=== PATIENT | male | born 1965 | race Caucasian/White ===

== ENCOUNTER 2023-07-13 05:57 | Outpatient (CLI) | payer MEDICAID, SELFPAY ==
[2023-07-13 07:54] LABS: Absolute Lymphocyte Count 3.11 10^3/uL (1.2-3.4); Basophils % 0.1; Eosinophils % 0.1; HCT 33.5 % (40.0-50.0); HGB 10.9 g/dL (13.5-17.5); Lymphocytes % 10.2; MCH 26.5 pg (27.0-33.0); MCHC 32.5 % (32.0-36.0); MCV 81 fL (80-95); MPV 8.4 fL (8.0-11.0); Monocytes % 6.6; RBC 4.12 10^6/uL (4.36-5.78); RDW 19.7 % (11.8-14.1); RDW-SD 54.4 fL
[2023-07-13 08:11] LABS: Absolute Basophil Count 0.03 10^3/uL (0.0-0.2); Absolute Eosinophil Count 0.03 10^3/uL (0.0-0.7); Absolute Monocyte Count 2.01 10^3/uL (0.1-0.8); Absolute Neutrophil Count 24.71 10^3/uL (1.2-6.7)
[2023-07-13 08:15] LABS: Diff Comment Diff Reviewed; Platelet Count 859 10^3/uL (130-400); RBC Morphology Normal
[2023-07-13 08:26] LABS: ALT 63 U/L (16-63); AST 25 U/L (15-37); Albumin 2.1 g/dL (3.4-5.0); Alkaline Phosphatase 409 U/L (46-116); Anion Gap 11.5 mmol/L (3-11); BUN 14 mg/dL (7-18); Bilirubin, Total 0.3 mg/dL (0.2-1.0); CO2 26.5 mmol/L (21.0-32.0); CREATININE 0.7 mg/dL (0.70-1.30); Calcium 7.9 mg/dL (8.5-10.1); Chloride 98 mmol/L (98-107); FREE T4 0.95 ng/dL (0.76-1.46); Glucose 220 mg/dL (74-106); Magnesium 1.7 mg/dL (1.8-2.4); Potassium 3.7 mmol/L (3.5-5.1); Sodium 136 mmol/L (136-145); TSH 1.78 uIU/Ml (0.36-3.74); Total Protein 6.9 g/dL (6.4-8.2)
== END 2023-07-13 05:58 | disposition home or self-care (01) ==
LOC: LBO 05:57
PROVIDERS: Visit Provider Internal Medicine Medical Oncology
DX: C34.92 Malignant neoplasm of unspecified part of left bronchus or lung (principal); C79.51 Secondary malignant neoplasm of bone
CPT/HCPCS: 36415; 80053; 83735; 84439; 84443; 85025

== ENCOUNTER 2023-08-03 05:01 | Outpatient (CLI) | payer MEDICAID, SELFPAY ==
[2023-08-03 08:55] LABS: Absolute Basophil Count 0.07 10^3/uL (0.0-0.2); Absolute Monocyte Count 1.57 10^3/uL (0.1-0.8); Basophils % 0.5; HCT 29.8 % (40.0-50.0); HGB 9.2 g/dL (13.5-17.5); Immature Grans % 2.2; MCH 26.2 pg (27.0-33.0); MCHC 30.9 % (32.0-36.0); MCV 85 fL (80-95); MPV 8.4 fL (8.0-11.0); Monocytes % 11.5; Neutrophils % 73.8; RBC 3.51 10^6/uL (4.36-5.78); RDW 19.4 % (11.8-14.1); RDW-SD 58.9 fL; WBC 13.65 10^3/uL (4.4-10.8)
[2023-08-03 09:02] LABS: Absolute Eosinophil Count 0.14 10^3/uL (0.0-0.7); Absolute Neutrophil Count 10.07 10^3/uL (1.2-6.7)
[2023-08-03 09:25] LABS: ALT 14 U/L (16-63); AST 10 U/L (15-37); Albumin 2.1 g/dL (3.4-5.0); Alkaline Phosphatase 364 U/L (46-116); Anion Gap 9.9 mmol/L (3-11); BUN 5 mg/dL (7-18); Bilirubin, Total 0.3 mg/dL (0.2-1.0); CO2 28.1 mmol/L (21.0-32.0); CREATININE 0.8 mg/dL (0.70-1.30); Calcium 8.1 mg/dL (8.5-10.1); Chloride 100 mmol/L (98-107); Estimated GFR 102.58 (mL/min/1.73m2); FREE T4 1.18 ng/dL (0.76-1.46); Glucose 163 mg/dL (74-106); Potassium 3.4 mmol/L (3.5-5.1); Sodium 138 mmol/L (136-145); TSH 0.85 uIU/Ml (0.36-3.74); Total Protein 6.9 g/dL (6.4-8.2)
[2023-08-03 10:33] LABS: Diff Comment Diff Reviewed; Platelet Count 808 10^3/uL (130-400); RBC Morphology Normal
== END 2023-08-03 05:02 | disposition home or self-care (01) ==
LOC: LBO 05:02 → LBN 08:54
PROVIDERS: Visit Provider Internal Medicine Medical Oncology
DX: C34.92 Malignant neoplasm of unspecified part of left bronchus or lung (principal); C79.51 Secondary malignant neoplasm of bone; Z79.899 Other long term (current) drug therapy
CPT/HCPCS: 80053; 83735; 84439; 84443; 85025

== ENCOUNTER 2023-10-14 10:25 | Outpatient (REF) | payer MEDICAID, SELFPAY ==
[2023-10-14 10:33] LABS: Abs Immature Grans 0.07 10^3/uL (0.0-0.06); Absolute Basophil Count 0.07 10^3/uL (0.0-0.2); Absolute Eosinophil Count 0.22 10^3/uL (0.0-0.7); Absolute Lymphocyte Count 1.55 10^3/uL (1.2-3.4); Absolute Monocyte Count 0.88 10^3/uL (0.1-0.8); Absolute Neutrophil Count 11.65 10^3/uL (1.2-6.7); Basophils % 0.5 %; Eosinophils % 1.5 %; HCT 36.7 % (40.0-50.0); HGB 11.5 g/dL (13.5-17.5); Immature Grans % 0.5 %; Lymphocytes % 10.7 %; MCH 25.8 pg (27.0-33.0); MCHC 31.3 % (32.0-36.0); MCV 82 fL (80-95); MPV 8.5 fL (8.0-11.0); Monocytes % 6.1 %; Neutrophils % 80.7 %; RBC 4.46 10^6/uL (4.36-5.78); RDW 17.1 % (11.8-14.1); WBC 14.44 10^3/uL (4.4-10.8)
[2023-10-14 11:01] LABS: ALT 34 U/L (16-63); AST 27 U/L (15-37); Albumin 2.7 g/dL (3.4-5.0); Anion Gap 8.4 mmol/L (3-11); BUN 7 mg/dL (7-18); Bilirubin, Total 0.66 mg/dL (0.2-1.0); CO2 27.6 mmol/L (21.0-32.0); CREATININE 0.9 mg/dL (0.70-1.30); Calcium 8.5 mg/dL (8.5-10.1); Chloride 95 mmol/L (98-107); FREE T4 1.27 ng/dL (0.76-1.46); Glucose 164 mg/dL (74-106); Magnesium 1.9 mg/dL (1.8-2.4); Potassium 3.2 mmol/L (3.5-5.1); Sodium 131 mmol/L (136-145); TSH 0.86 uIU/Ml (0.36-3.74); Total Protein 8.1 g/dL (6.4-8.2)
[2023-10-14 11:02] LABS: Alkaline Phosphatase 1038 U/L (46-116)
[2023-10-14 11:25] LABS: Diff Comment Diff Reviewed; Platelet Count 665 10^3/uL (130-400); RBC Morphology Normal
== END 2023-10-14 10:26 | disposition home or self-care (01) ==
LOC: LBN 10:25
PROVIDERS: Visit Provider Internal Medicine Medical Oncology
DX: C34.92 Malignant neoplasm of unspecified part of left bronchus or lung (principal); C79.51 Secondary malignant neoplasm of bone; Z79.899 Other long term (current) drug therapy
CPT/HCPCS: 80053; 83735; 84439; 84443; 85025

== ENCOUNTER 2023-11-02 02:09 | Outpatient (CLI) | payer MEDICAID, SELFPAY ==
[2023-11-02 09:30] LABS: Abs Immature Grans 0.04 10^3/uL (0.0-0.06); Absolute Basophil Count 0.04 10^3/uL (0.0-0.2); Absolute Eosinophil Count 0.04 10^3/uL (0.0-0.7); Absolute Lymphocyte Count 1.15 10^3/uL (1.2-3.4); Absolute Monocyte Count 0.67 10^3/uL (0.1-0.8); Absolute Neutrophil Count 5.44 10^3/uL (1.2-6.7); Basophils % 0.5 %; Eosinophils % 0.5 %; HCT 38.9 % (40.0-50.0); HGB 12.1 g/dL (13.5-17.5); Immature Grans % 0.5 %; Lymphocytes % 15.6 %; MCHC 31.1 % (32.0-36.0); MCV 84 fL (80-95); MPV 8.3 fL (8.0-11.0); Monocytes % 9.1 %; Neutrophils % 73.8 %; Platelet Count 453 10^3/uL (130-400); RBC 4.66 10^6/uL (4.36-5.78); RDW 18.1 % (11.8-14.1); RDW-SD 55.2 fL; WBC 7.38 10^3/uL (4.4-10.8)
[2023-11-02 09:45] LABS: ALT 47 U/L (16-63); AST 31 U/L (15-37); Albumin 2.8 g/dL (3.4-5.0); Alkaline Phosphatase 915 U/L (46-116); Anion Gap 10.3 mmol/L (3-11); BUN 8 mg/dL (7-18); Bilirubin, Total 0.34 mg/dL (0.2-1.0); CO2 26.7 mmol/L (21.0-32.0); Calcium 9.1 mg/dL (8.5-10.1); Chloride 98 mmol/L (98-107); Estimated GFR 87.24 (mL/min/1.73m2); FREE T4 1.17 ng/dL (0.76-1.46); Glucose 228 mg/dL (74-106); Magnesium 2.3 mg/dL (1.8-2.4); Potassium 3.7 mmol/L (3.5-5.1); Sodium 135 mmol/L (136-145); TSH 0.72 uIU/Ml (0.36-3.74); Total Protein 8.5 g/dL (6.4-8.2)
== END 2023-11-02 02:10 | disposition home or self-care (01) ==
LOC: LBO 02:09
PROVIDERS: Visit Provider Internal Medicine Medical Oncology
DX: C34.92 Malignant neoplasm of unspecified part of left bronchus or lung (principal); C79.51 Secondary malignant neoplasm of bone; Z79.899 Other long term (current) drug therapy
CPT/HCPCS: 36415; 80053; 83735; 84439; 84443; 85025

== ENCOUNTER 2023-11-23 03:42 | Outpatient (CLI) | payer MEDICAID, SELFPAY ==
[2023-11-23 07:14] LABS: Abs Immature Grans 0.11 10^3/uL (0.0-0.06); Absolute Eosinophil Count 0.07 10^3/uL (0.0-0.7); Absolute Lymphocyte Count 1.63 10^3/uL (1.2-3.4); Absolute Monocyte Count 1.51 10^3/uL (0.1-0.8); Basophils % 0.6 %; Eosinophils % 0.6 %; HCT 40.7 % (40.0-50.0); HGB 12.7 g/dL (13.5-17.5); Immature Grans % 0.9 %; Lymphocytes % 13.1 %; MCH 25.8 pg (27.0-33.0); MCHC 31.2 % (32.0-36.0); MCV 83 fL (80-95); MPV 8.2 fL (8.0-11.0); Monocytes % 12.1 %; Neutrophils % 72.7 %; Platelet Count 524 10^3/uL (130-400); RBC 4.93 10^6/uL (4.36-5.78); RDW 17.2 % (11.8-14.1); RDW-SD 51.8 fL; WBC 12.48 10^3/uL (4.4-10.8)
[2023-11-23 07:18] LABS: Absolute Basophil Count 0.07 10^3/uL (0.0-0.2); Absolute Neutrophil Count 9.07 10^3/uL (1.2-6.7)
[2023-11-23 07:38] LABS: ALT 23 U/L (16-63); AST 20 U/L (15-37); Albumin 2.7 g/dL (3.4-5.0); Alkaline Phosphatase 894 U/L (46-116); BUN 5 mg/dL (7-18); Bilirubin, Total 0.42 mg/dL (0.2-1.0); CREATININE 0.9 mg/dL (0.70-1.30); Calcium 8.5 mg/dL (8.5-10.1); Chloride 95 mmol/L (98-107); FREE T4 1.33 ng/dL (0.76-1.46); Glucose 154 mg/dL (74-106); Magnesium 1.8 mg/dL (1.8-2.4); Potassium 3.6 mmol/L (3.5-5.1); Sodium 134 mmol/L (136-145); TSH 1.21 uIU/Ml (0.36-3.74); Total Protein 7.8 g/dL (6.4-8.2)
== END 2023-11-23 03:43 | disposition home or self-care (01) ==
LOC: LBO 03:42
PROVIDERS: Visit Provider Internal Medicine Medical Oncology
DX: C34.92 Malignant neoplasm of unspecified part of left bronchus or lung (principal); C79.51 Secondary malignant neoplasm of bone; Z79.899 Other long term (current) drug therapy
CPT/HCPCS: 36415; 80053; 83735; 84439; 84443; 85025

== ENCOUNTER 2023-12-16 02:36 | Outpatient (CLI) | payer MEDICAID, SELFPAY ==
[2023-12-16 07:48] LABS: Abs Immature Grans 0.08 10^3/uL (0.0-0.06); Absolute Eosinophil Count 0.08 10^3/uL (0.0-0.7); Absolute Lymphocyte Count 1.52 10^3/uL (1.2-3.4); Absolute Monocyte Count 1.21 10^3/uL (0.1-0.8); Basophils % 0.8 %; Eosinophils % 0.7 %; HCT 40.1 % (40.0-50.0); HGB 12.6 g/dL (13.5-17.5); Immature Grans % 0.7 %; Lymphocytes % 12.7 %; MCH 25.9 pg (27.0-33.0); MCHC 31.4 % (32.0-36.0); MCV 83 fL (80-95); MPV 8.3 fL (8.0-11.0); Monocytes % 10.1 %; Platelet Count 502 10^3/uL (130-400); RBC 4.86 10^6/uL (4.36-5.78); RDW 17.9 % (11.8-14.1); RDW-SD 53.6 fL; WBC 11.99 10^3/uL (4.4-10.8)
[2023-12-16 08:00] LABS: Absolute Neutrophil Count 8.99 10^3/uL (1.2-6.7)
[2023-12-16 08:19] LABS: ALT 29 U/L (16-63); AST 24 U/L (15-37); Albumin 2.9 g/dL (3.4-5.0); Alkaline Phosphatase 951 U/L (46-116); Anion Gap 6.1 mmol/L (3-11); BUN 7 mg/dL (7-18); Bilirubin, Total 0.39 mg/dL (0.2-1.0); CO2 29.9 mmol/L (21.0-32.0); CREATININE 0.9 mg/dL (0.70-1.30); Calcium 9.5 mg/dL (8.5-10.1); Chloride 99 mmol/L (98-107); Estimated GFR 98.38 (mL/min/1.73m2); FREE T4 1.02 ng/dL (0.76-1.46); Glucose 141 mg/dL (74-106); Magnesium 1.8 mg/dL (1.8-2.4); Potassium 3.6 mmol/L (3.5-5.1); Sodium 135 mmol/L (136-145); TSH 1.23 uIU/Ml (0.36-3.74)
== END 2023-12-16 02:37 | disposition home or self-care (01) ==
LOC: LBO 02:36
PROVIDERS: Visit Provider Internal Medicine Medical Oncology
DX: C34.92 Malignant neoplasm of unspecified part of left bronchus or lung (principal); C79.51 Secondary malignant neoplasm of bone; Z79.899 Other long term (current) drug therapy
CPT/HCPCS: 36415; 80053; 83735; 84439; 84443; 85025

== ENCOUNTER 2024-01-06 02:25 | Outpatient (CLI) | payer MEDICAID, SELFPAY ==
[2024-01-06 08:26] LABS: Absolute Basophil Count 0.08 10^3/uL (0.0-0.2); Absolute Lymphocyte Count 2.15 10^3/uL (1.2-3.4); Absolute Monocyte Count 0.97 10^3/uL (0.1-0.8); Absolute Neutrophil Count 5.96 10^3/uL (1.2-6.7); Basophils % 0.9 %; Eosinophils % 1.1 %; HCT 36.3 % (40.0-50.0); HGB 11.7 g/dL (13.5-17.5); Immature Grans % 1.1 %; MCH 26.7 pg (27.0-33.0); MCHC 32.2 % (32.0-36.0); MCV 83 fL (80-95); MPV 8.6 fL (8.0-11.0); Monocytes % 10.4 %; Neutrophils % 63.5 %; Platelet Count 357 10^3/uL (130-400); RBC 4.38 10^6/uL (4.36-5.78); RDW 17.9 % (11.8-14.1); RDW-SD 53.9 fL; WBC 9.36 10^3/uL (4.4-10.8)
[2024-01-06 08:50] LABS: ALT 37 U/L (16-63); AST 32 U/L (15-37); Albumin 2.5 g/dL (3.4-5.0); Alkaline Phosphatase 868 U/L (46-116); Anion Gap 8.3 mmol/L (3-11); BUN 11 mg/dL (7-18); Bilirubin, Total 0.33 mg/dL (0.2-1.0); CO2 27.7 mmol/L (21.0-32.0); CREATININE 0.8 mg/dL (0.70-1.30); Calcium 8.9 mg/dL (8.5-10.1); Chloride 95 mmol/L (98-107); Estimated GFR 101.95 (mL/min/1.73m2); FREE T4 1.15 ng/dL (0.76-1.46); Glucose 110 mg/dL (74-106); Magnesium 1.4 mg/dL (1.8-2.4); Potassium 3.7 mmol/L (3.5-5.1); Sodium 131 mmol/L (136-145); TSH 2.08 uIU/Ml (0.36-3.74); Total Protein 7.5 g/dL (6.4-8.2)
== END 2024-01-06 02:26 | disposition home or self-care (01) ==
LOC: LBO 02:25
PROVIDERS: Visit Provider Internal Medicine Medical Oncology
DX: C34.92 Malignant neoplasm of unspecified part of left bronchus or lung (principal); C79.51 Secondary malignant neoplasm of bone; Z79.899 Other long term (current) drug therapy
CPT/HCPCS: 36415; 80053; 83735; 84439; 84443; 85025

== ENCOUNTER 2024-01-25 03:01 | Outpatient (CLI) | payer MEDICAID, SELFPAY ==
[2024-01-25 08:54] LABS: Abs Immature Grans 0.17 10^3/uL (0.0-0.06); Absolute Basophil Count 0.12 10^3/uL (0.0-0.2); Absolute Eosinophil Count 0.09 10^3/uL (0.0-0.7); Absolute Lymphocyte Count 1.57 10^3/uL (1.2-3.4); Absolute Monocyte Count 1.18 10^3/uL (0.1-0.8); Absolute Neutrophil Count 5.87 10^3/uL (1.2-6.7); Basophils % 1.3 %; HCT 37.9 % (40.0-50.0); HGB 11.9 g/dL (13.5-17.5); Immature Grans % 1.9 %; Lymphocytes % 17.4 %; MCH 27.1 pg (27.0-33.0); MCHC 31.4 % (32.0-36.0); MCV 86 fL (80-95); MPV 8.8 fL (8.0-11.0); Monocytes % 13.1 %; Neutrophils % 65.3 %; Platelet Count 581 10^3/uL (130-400); RBC 4.39 10^6/uL (4.36-5.78); RDW 18.3 % (11.8-14.1); RDW-SD 57.4 fL
[2024-01-25 09:22] LABS: ALT 44 U/L (16-63); AST 35 U/L (15-37); Albumin 2.6 g/dL (3.4-5.0); Alkaline Phosphatase 933 U/L (46-116); Anion Gap 10.4 mmol/L (3-11); BUN 10 mg/dL (7-18); Bilirubin, Total 0.37 mg/dL (0.2-1.0); CO2 27.6 mmol/L (21.0-32.0); CREATININE 0.9 mg/dL (0.70-1.30); Calcium 9.5 mg/dL (8.5-10.1); Chloride 98 mmol/L (98-107); Estimated GFR 98.38 (mL/min/1.73m2); FREE T4 1.17 ng/dL (0.76-1.46); Glucose 125 mg/dL (74-106); Potassium 4.1 mmol/L (3.5-5.1); Sodium 136 mmol/L (136-145); TSH 0.93 uIU/mL (0.36-3.74); Total Protein 7.9 g/dL (6.4-8.2)
== END 2024-01-25 03:02 | disposition home or self-care (01) ==
LOC: LBO 03:02
PROVIDERS: Visit Provider Internal Medicine Medical Oncology
DX: C34.92 Malignant neoplasm of unspecified part of left bronchus or lung (principal); C79.51 Secondary malignant neoplasm of bone; Z79.899 Other long term (current) drug therapy
CPT/HCPCS: 36415; 80053; 83735; 84439; 84443; 85025

== ENCOUNTER 2024-02-15 03:09 | Outpatient (CLI) | payer MEDICAID, SELFPAY ==
[2024-02-15 09:22] LABS: Abs Immature Grans 0.03 10^3/uL (0.0-0.06); Absolute Basophil Count 0.06 10^3/uL (0.0-0.2); Absolute Eosinophil Count 0.09 10^3/uL (0.0-0.7); Absolute Lymphocyte Count 1.41 10^3/uL (1.2-3.4); Absolute Monocyte Count 0.93 10^3/uL (0.1-0.8); Absolute Neutrophil Count 5.51 10^3/uL (1.2-6.7); Basophils % 0.7 %; Eosinophils % 1.1 %; Immature Grans % 0.4 %; Lymphocytes % 17.6 %; MCHC 32.4 % (32.0-36.0); MCV 86 fL (80-95); MPV 8.6 fL (8.0-11.0); Monocytes % 11.6 %; Neutrophils % 68.6 %; Platelet Count 435 10^3/uL (130-400); RBC 4.29 10^6/uL (4.36-5.78); RDW 17.4 % (11.8-14.1); RDW-SD 55.4 fL; WBC 8.03 10^3/uL (4.4-10.8)
[2024-02-15 09:46] LABS: ALT 20 U/L (16-63); AST 20 U/L (15-37); Albumin 2.7 g/dL (3.4-5.0); Alkaline Phosphatase 741 U/L (46-116); Anion Gap 6.5 mmol/L (3-11); BUN 7 mg/dL (7-18); Bilirubin, Total 0.39 mg/dL (0.2-1.0); CO2 30.5 mmol/L (21.0-32.0); CREATININE 0.9 mg/dL (0.70-1.30); Calcium 9.7 mg/dL (8.5-10.1); Chloride 96 mmol/L (98-107); Estimated GFR 98.38 (mL/min/1.73m2); Glucose 118 mg/dL (74-106); Magnesium 1.5 mg/dL (1.8-2.4); Potassium 3.7 mmol/L (3.5-5.1); Sodium 133 mmol/L (136-145); Total Protein 7.9 g/dL (6.4-8.2)
== END 2024-02-15 03:10 | disposition home or self-care (01) ==
LOC: LBO 03:09
PROVIDERS: Visit Provider Internal Medicine Medical Oncology
DX: C34.92 Malignant neoplasm of unspecified part of left bronchus or lung (principal); C79.51 Secondary malignant neoplasm of bone; Z79.899 Other long term (current) drug therapy; Z51.5 Encounter for palliative care; Z78.9 Other specified health status; R11.2 Nausea with vomiting, unspecified; G89.3 Neoplasm related pain (acute) (chronic)
CPT/HCPCS: 36415; 80053; 83735; 84439; 84443; 85025

== ENCOUNTER 2024-02-17 06:23 | Day surgery (SDC) | payer MEDICAID, SELFPAY ==
--- NOTE | 2024-02-16 18:34 | W.PREOPHP ---
Assessment and Plan Assessment and plan (1) Malignant neoplasm of left lung stage 4: Status: Acute Assessment and plan: we reviwed the plan for insertion of a subcutaneous mediport for chemotherpy. I explained the risks and the benefits of the procedure and I answered Gaurav's questions. He is able to provide informed consent and we can proceed with the procedure as planned. History of Present Illness History of Present Illness Chief Complaint: small cell lung cancer Narrative: Gaurav is a 58 year old man with metastatic small cell lung cancer. He is undergoing chemotherapy treatment and needs durable venous access for treatments. PFSH All Active Problems (Updated 02/17/24 @ 06:47 by Clover Esparza) Deficit in activities of daily living (ADL) (Acute) Cough (Acute) Full code status (Acute) Impaired instrumental activities of daily living (Acute) Difficulty swallowing (Acute) Unintentional weight loss (Acute) Nausea and vomiting (Acute) Financial difficulties (Acute) Palliative care patient (Acute) High risk medication use (Acute) Malignant neoplasm of left lung stage 4 (Acute) Neoplasm related pain (Acute) Secondary malignant neoplasm of liver (Acute) Secondary malignant neoplasm of bone (Acute) Medical History (Updated 02/17/24 @ 06:47 by Clover Esparza) Hx of cancer of lung Shortness of breath Wheezing Constipation Tobacco use COPD (chronic obstructive pulmonary disease) Surgical History (Updated 02/17/24 @ 06:47 by Clover Esparza) History of open reduction and internal fixation (ORIF) procedure R thumb Hx of colonoscopy Family History Mother , 2008 Lung cancer Father Dementia Social History Smoking/Tobacco Use Status: Current every day Tobacco Type: cigarettes Smoking risk assessment performed?: Yes Alcohol Intake: never Drug use: Never Substance use type: does not use Housing: house Do you feel safe at home: Yes Do you feel safe in your relationship?: Yes Additional Social history: UTAP Meds Allergies and Home Medications Allergies Allergy/AdvReac Type Severity Reaction Status Date / Time codeine AdvReac Intermediate unknown Verified 02/17/24 06:46 Home Medications ?Medication ?Instructions ?Recorded ?Confirmed ?Type acetaminophen 325 mg tablet 325 mg PO Q4H PRN 07/23/23 02/17/24 History (Tylenol) food supplemt, lactose-reduced ml PO 07/23/23 02/15/24 History 0.08 gram-1.5 kcal/mL oral liquid (Ensure Plus High Protein) ipratropium 20 mcg-albuterol 100 1 puff inhalation QID 07/23/23 02/17/24 History mcg/actuation mist for inhalation (Combivent Respimat) ipratropium bromide 17 2 puff inhalation QID 07/23/23 02/17/24 History mcg/actuation HFA aerosol inhaler (Atrovent HFA) nicotine 14 mg/24 hr daily 1 patch transdermal DAILY 07/23/23 02/17/24 History transdermal patch (Nicoderm CQ) omeprazole magnesium 20 mg 20 mg PO DAILY 07/23/23 02/17/24 History tablet,delayed release (Prilosec OTC) polyethylene glycol 3350 17 17 g PO DAILY PRN 07/23/23 02/17/24 History gram/dose oral powder (Miralax) rosuvastatin 20 mg tablet (Crestor) 20 mg PO DAILY 07/23/23 02/17/24 History albuterol sulfate 90 mcg/actuation 2 puff inhalation Q4H PRN 11/23/23 02/17/24 Rx aerosol inhaler shortness of breath or wheezing #8.5 grams benzonatate 100 mg capsule 100 mg PO TID cough #30 caps 11/23/23 02/17/24 Rx prochlorperazine maleate 10 mg 10 mg PO Q6H PRN nausea and 11/23/23 02/17/24 Rx tablet (Compazine) vomiting #60 tabs sennosides 8.6 mg tablet (senna) 8.6 mg PO BID PRN constipation #90 11/23/23 02/17/24 Rx tabs celecoxib 100 mg capsule 100 - 200 mg (1 - 2 x 100 mg) PO 01/26/24 02/17/24 Rx BID #30 caps ondansetron 4 mg disintegrating 4 mg PO Q8H #60 tabs 01/26/24 02/17/24 Rx tablet olanzapine 5 mg tablet (Zyprexa) 5 mg PO QHS #30 tabs 02/15/24 02/17/24 Rx ondansetron 8 mg disintegrating 8 mg PO Q8H PRN nausea and 02/15/24 02/17/24 Rx tablet vomiting #30 tabs oxycodone 15 mg tablet 15 - 30 mg (1 - 2 x 15 mg) PO Q3H 02/15/24 02/17/24 Rx PRN PRN pain #120 tabs oxycodone myristate 27 mg capsule 27 mg PO Q12H #28 caps 02/15/24 02/17/24 Rx sprinkle extended release 12hr(DON'T CRUSH) (Xtampza ER) Exam Const General: cooperative and comfortable Nutritional Appearance: malnourished Orientation: alert, awake and oriented x3 HENMT Head: normal to inspection Neck Neck: normal visual inspection, full ROM and no lymphadenopathy Resp Effort & Inspection: normal respiratory effort and able to speak in complete sentences Auscultation: bronchial breath sounds Cardio Jugular venous pressure: no JVD Rate: regular rate Rhythm: regular rhythm Heart Sounds: S1 normal and S2 normal
--- NOTE | 2024-02-16 18:37 | PDOC.DSDIS_ITS ---
Date of service: 02/17/24 Time of Service: 08:50 Discharge Plan Disposition Patient Disposition: Home Condition: Stable Discharge Details Reason For Visit: mediport placement Attending Provider: Oc Philip Primary Care Provider: Unknown,Unknown Home Meds and New Rx's Prescriptions: Continued albuterol sulfate 90 mcg/actuation HFA aerosol inhaler 2 puff inhalation Q4H PRN (Reason: shortness of breath or wheezing) Qty: 8.5 4RF Rx Instructions: for wheezing prochlorperazine maleate [Compazine] 10 mg tablet 10 mg PO Q6H PRN (Reason: nausea and vomiting) Qty: 60 2RF Rx Instructions: for nausea sennosides [senna] 8.6 mg tablet 8.6 mg PO BID PRN (Reason: constipation) Qty: 90 5RF benzonatate 100 mg capsule 100 mg PO TID Qty: 30 5RF ondansetron 4 mg tablet,disintegrating 4 mg PO Q8H Qty: 60 2RF celecoxib 100 mg capsule 100 - 200 mg PO BID Qty: 30 3RF olanzapine [Zyprexa] 5 mg tablet 5 mg PO QHS Qty: 30 2RF ondansetron 8 mg tablet,disintegrating 8 mg PO Q8H PRN (Reason: nausea and vomiting) Qty: 30 2RF Xtampza ER 27 mg cap,sprinkl,ER12hr(DONT CRUSH) 27 mg PO Q12H MDD 2 tabs Qty: 28 0RF Rx Instructions: must administer with a meal/food rosuvastatin [Crestor] 20 mg tablet 20 mg PO DAILY nicotine [Nicoderm CQ] 14 mg/24 hr patch 24 hour 1 patch transdermal DAILY omeprazole magnesium [Prilosec OTC] 20 mg tablet,delayed release (DR/EC) 20 mg PO DAILY acetaminophen [Tylenol] 325 mg tablet 325 mg PO Q4H PRN Combivent Respimat 20-100 mcg/actuation mist 1 puff inhalation QID Rx Instructions: space evenly during waking hours Atrovent HFA 17 mcg/actuation HFA aerosol inhaler 2 puff inhalation QID Ensure Plus High Protein 0.08 gram-1.5 kcal/mL liquid PO Rx Instructions: three bottles of vanilla Ensure Plus per day polyethylene glycol 3350 [Miralax] 17 gram/dose powder 17 g PO DAILY PRN oxycodone 15 mg tablet 15 - 30 mg PO Q3H PRN MDD 12 tabs PRN (Reason: pain) Qty: 120 0RF Rx Instructions: take one or two tablets every 3 hours, as needed; short acting pain medication Discharge Instructions Additional Instructions: Zonia, was very nice meeting you today, and I hope you make a quick recovery from this procedure. Like we talked about, we did have to switch over to the right side in order to get the port placed, because the guidewire would not pass along the left side. Based on your ultrasound, I suspect you may have some blood clots in the veins along your left side. I would encourage you to talk a bout this with your oncologist. There are some cases where patients are treated with blood thinning medications, since blood clots and large veins can be life- threatening. However others argue that upper extremity deep vein thrombosis does not necessarily need treatment. It should also be considered in light of your overall condition and prognosis. As I discussed, you have some bandages on the right side of your chest and neck. This can be left in place until tomorrow. You can remove them after that, and wash all the incision sites with warm soapy water. Expect to get some bruising, perhaps on both the left and right side of your chest and neck. That is very common and nothing to be alarmed about. If you notice any drainage from the incision site on your chest wall or the right side of your neck, I would like to know about that. As I mentioned, technically speaking, the port could be accessed as soon as tomorrow. I did add some blood thinning medication to the port itself to help maintain its patency and preserve it for future use. If you need anything, or have any questions at all, please do not hesitate to ask. Stand Alone Forms: Anesthesia Discharge Inst., Rafa Swan (DSU) Activity:: Activity as Tolerated Remove Dressings/Wound Care:: 24 hours Shower/Bathe:: 24 hours Diet:: As Tolerated Discharge Orders Discharge Orders: Discharge Order (Routine); Ordered 02/16/24 Ordered By: Oc Philip DS: Diagnosis Discharge Diagnosis (1) Malignant neoplasm of left lung stage 4: Status: Acute Asessment and Plan: Status post insertion of right internal jugular Mediport. Okay to use within 48 hours.
--- NOTE | 2024-02-16 18:38 | W.PM.OP ---
Date of service: 02/17/24 Time of Service: 09:05 Operative Note Operative Note DATE OF PROCEDURE: 02/17/24 PRE-OP DIAGNOSIS: metastatic small cell lung cancer POST-OP DIAGNOSIS: same PROCEDURE: Insertion of right internal jugular Mediport catheter SURGEON: Oc Philip ANESTHESIA TYPE: Local By Surgeon and MAC Refer to Anesthesia Record ESTIMATED BLOOD LOSS: 10 PATHOLOGY: none sent COMPLICATIONS: None Patient was transported to: same day Implants: Right-sided Bard PowerPort Indications: Gaurva is a 58-year-old male with metastatic lung cancer. He needs durable intravenous access for treatment of his cancer. Findings: Suspected thrombosis of the left subclavian Procedure Description: I met with Gaurav in the preoperative area, discussed the planned procedure. He was able to provide informed consent. Next, we moved back to the operating room. He was assisted onto the OR table and padded and supported appropriately. Anesthesia was initiated. I performed a limited ultrasound of the left subclavian. The axillary vein appears patent, but is difficult to decipher the subclavian vein under the clavicle given his body habitus. I did have some concern regarding the patency of the subclavian vein, as the distal internal jugular also has a slightly atypical appearance. There does appear to be some preserved lumen, but the vessel was not exactly compressible near the junction of the internal jugular and the subclavian. Regardless, I attempted to access the left axillary vein. This was done under direct guidance with the ultrasound. Images were not saved. I was never able to get adequate blood flow from the left subclavian vein. Therefore, I attempted accessing the left internal jugular. This was widely patent, and easily cannulated. However, with gentle manipulation of the guidewire, I was not able to advance it distally. This seemed to support the diagnosis of some type of thrombosis in the area. Therefore, I turned my attention to the right side. The right internal jugular appeared widely patent was easily cannulated. I was able to advance a guidewire down this to the atriocaval junction. Fluoroscopy was used to confirm the appropriate position. Next, I anesthetized an area on the right chest wall as a target for the pocket. I also anesthetized the trajectory of the tunneled portion of the catheter. I then advanced an introducer over the guidewire which was subsequently removed. Next, I matured the tunnel up over the right clavicle towards the access site. A Bard PowerPoint catheter was secured to the tunneling device, which was advanced from the right subcutaneous pocket up over the clavicle and out through the access site. The catheter was then advanced through the introducer without any difficulty. Again, fluoroscopy was used to confirm the appropriate position of the catheter. Once this was done, the catheter was cut to length, and aspirated without any difficulty. It was then flushed with little bit of saline solution. The port was then affixed to the catheter according to the manufactures instructions. The port site was developed a bit in the subcutaneous space preserving an adequate skin flap. It was then affixed down to the deeper tissues with Prolene suture. With the catheter at all in place, Rangel needle was used to access the port once again. Similar to previous, it aspirated with ease, and was then flushed with saline. Finally, heparinized solution was instilled into the catheter. The skin at the pocket site was then closed with interrupted Vicryl stitches. A single suture was used to close the percutaneous site in the neck as well. Surgical glue was then used to reapproximate the skin edges. Bandages were applied, the patient was transferred to the day surgery unit prior to discharge.
[2024-02-17 06:53] VITALS: BP 116/82; PULSE 91; RESP 20; TEMP 36.8; O2SAT 98
--- NOTE | 2024-02-17 07:11 | W.ANESPRE ---
General Info Date of Service Date Performed: 02/17/24 Height: 6 ft Weight: 69.4 kg Body Mass Index (BMI): 20.7 Surgical Procedure: Operation Date: 02/17/24 07:40 Proposed Procedure Side Surgeon p Insertion of Subclavian Mediport Left Oc Philip MD Meds Allergies and Home Medications Allergies Allergy/AdvReac Type Severity Reaction Status Date / Time codeine AdvReac Intermediate unknown Verified 02/17/24 06:46 Home Medication ?Medication ?Instructions ?Recorded acetaminophen 325 mg tablet 325 mg PO Q4H PRN 07/23/23 (Tylenol) food supplemt, lactose-reduced ml PO 07/23/23 0.08 gram-1.5 kcal/mL oral liquid (Ensure Plus High Protein) ipratropium 20 mcg-albuterol 100 1 puff inhalation QID 07/23/23 mcg/actuation mist for inhalation (Combivent Respimat) ipratropium bromide 17 2 puff inhalation QID 07/23/23 mcg/actuation HFA aerosol inhaler (Atrovent HFA) nicotine 14 mg/24 hr daily 1 patch transdermal DAILY 07/23/23 transdermal patch (Nicoderm CQ) omeprazole magnesium 20 mg 20 mg PO DAILY 07/23/23 tablet,delayed release (Prilosec OTC) polyethylene glycol 3350 17 17 g PO DAILY PRN 07/23/23 gram/dose oral powder (Miralax) rosuvastatin 20 mg tablet (Crestor) 20 mg PO DAILY 07/23/23 albuterol sulfate 90 mcg/actuation 2 puff inhalation Q4H PRN 11/23/23 aerosol inhaler shortness of breath or wheezing #8.5 grams benzonatate 100 mg capsule 100 mg PO TID cough #30 caps 11/23/23 prochlorperazine maleate 10 mg 10 mg PO Q6H PRN nausea and 11/23/23 tablet (Compazine) vomiting #60 tabs sennosides 8.6 mg tablet (senna) 8.6 mg PO BID PRN constipation #90 11/23/23 tabs celecoxib 100 mg capsule 100 - 200 mg (1 - 2 x 100 mg) PO 01/26/24 BID #30 caps ondansetron 4 mg disintegrating 4 mg PO Q8H #60 tabs 01/26/24 tablet olanzapine 5 mg tablet (Zyprexa) 5 mg PO QHS #30 tabs 02/15/24 ondansetron 8 mg disintegrating 8 mg PO Q8H PRN nausea and 02/15/24 tablet vomiting #30 tabs oxycodone 15 mg tablet 15 - 30 mg (1 - 2 x 15 mg) PO Q3H 02/15/24 PRN PRN pain #120 tabs oxycodone myristate 27 mg capsule 27 mg PO Q12H #28 caps 02/15/24 sprinkle extended release 12hr(DON'T CRUSH) (Xtampza ER) Current Visit Medications: Current Medications Generic Name Dose Route Start Last Admin Trade Name Freq PRN Reason Stop Dose Admin Hydromorphone HCl 0.2 mg 02/16/24 18:39 Hydromorphone 1 Mg/Ml Syr IVP 03/17/24 18:38 Q1H PRN PRN Ringer's Solution 1,000 mls @ 80 mls/hr 02/17/24 06:00 IV 02/17/24 23:59 INFUSION FER Cefazolin Sodium/Dextrose 2 gm in 50 mls @ 100 mls/hr 02/17/24 06:00 Ancef Duplex IVPB 02/17/24 23:59 PREOP FER IV Miscellaneous Supplies 1 each 02/17/24 06:00 Iv Access IV 02/17/24 23:59 DIRECTED FER Sodium Chloride 0 ml 02/17/24 06:00 Normal Saline Flush 10 Ml Syr IV 02/17/24 23:59 PRN PRN Sodium Chloride 0 ml 02/17/24 06:00 Normal Saline 10 Ml Vial IJ 02/17/24 23:59 DIRECTED PRN Sterile Water 0 ml 02/17/24 06:00 Water,Injection,Sterile 10 Ml Vial IJ 02/17/24 23:59 DIRECTED PRN PFSH Active Problems Active Problems: Problem Status Onset Code Deficit in activities of daily living (ADL) Acute Z78.9 Cough Acute R05.9 Full code status Acute Z78.9 Impaired instrumental activities of daily living Acute Z78.9 Difficulty swallowing Acute R13.10 Unintentional weight loss Acute R63.4 Nausea and vomiting Acute R11.2 Financial difficulties Acute Z59.9 Palliative care patient Acute Z51.5 High risk medication use Acute Z79.899 Malignant neoplasm of left lung stage 4 Acute C34.92 Neoplasm related pain Acute G89.3 Secondary malignant neoplasm of liver Acute C78.7 Secondary malignant neoplasm of bone Acute C79.51 Medical History Medical History (Updated 02/17/24 @ 06:47 by Clover Esparza) Hx of cancer of lung Shortness of breath Wheezing Constipation Tobacco use COPD (chronic obstructive pulmonary disease) Surgical History Surgical History (Updated 02/17/24 @ 06:47 by Clover Esparza) History of open reduction and internal fixation (ORIF) procedure R thumb Hx of colonoscopy Tobacco Smoking/Tobacco Use Status: Current every day Tobacco Type: cigarettes Smoking cigarettes per day: 2 Alcohol Alcohol Intake: never Substance Use Substance use: Never Substance use type: does not use Vital Signs and Lab Results Vital Signs Most Recent Vital Signs in EMR: Most Recent Vital Signs Temp Pulse Resp BP Pulse Ox 36.8 C 91 H 20 116/82 98 02/17/24 06:53 02/17/24 06:53 02/17/24 06:53 02/17/24 06:53 02/17/24 06:53 Lab Results Blood Type / Crossmatch: No Data to Display Complete Blood Count: White Blood Count 8.03 10^3/uL (4.4-10.8) 02/15/24 09:17 Red Blood Count 4.29 10^6/uL (4.36-5.78) L 02/15/24 09:17 Hemoglobin 12.0 g/dL (13.5-17.5) L 02/15/24 09:17 Hematocrit 37.0 % (40.0-50.0) L 02/15/24 09:17 Platelet Count 435 10^3/uL (130-400) H 02/15/24 09:17 Complete Metabolic Panel: Sodium 133 mmol/L (136-145) L 02/15/24 09:17 Potassium 3.7 mmol/L (3.5-5.1) 02/15/24 09:17 Chloride 96 mmol/L (98-107) L 02/15/24 09:17 Carbon Dioxide 30.5 mmol/L (21.0-32.0) 02/15/24 09:17 BUN 7 mg/dL (7-18) 02/15/24 09:17 Creatinine 0.9 mg/dL (0.70-1.30) 02/15/24 09:17 Est GFR (CKD-EPI 2020) 98.38 (mL/min/1.73m2) 02/15/24 09:17 Magnesium 1.5 mg/dL (1.8-2.4) L 02/15/24 09:17 Calcium 9.7 mg/dL (8.5-10.1) 02/15/24 09:17 Albumin 2.7 g/dL (3.4-5.0) L 02/15/24 09:17 Glucose 118 mg/dL (74-106) H 02/15/24 09:17 Liver Function Panel: Alanine Aminotransferase (ALT/SGPT) 20 U/L (16-63) 02/15/24 09:17 Aspartate Amino Transf (AST/SGOT) 20 U/L (15-37) 02/15/24 09:17 Coagulation Panel: No Data to Display Cardiac Panel: No Data to Display Arterial Blood Gas: No Data to Display Venous Blood Gas: No Data to Display Pancreas Panel: No Data to Display Thyroid Panel: Thyroid Stimulating Hormone (TSH) 0.90 uIU/mL (0.36-3.74) 02/15/24 09:17 Infectious Disease: No Data to Display Blood Cultures: No Data to Display Toxicology Panel: No Data to Display Anesthesia Assessment and Plan Anesthesia History Personal History: No History of Anesthesia Complications Family History: No Family History of Anesthesia Complications Exercise Tolerance Exercise Tolerance: Metabolic Equivalents>4 Pertinent Negatives Pertinent Negatives: No Symptoms of GERD Cardiac & Pulmonary Exam Cardiac Exam: Normal S1/S2 Heart Sounds Pulmonary Exam: Clear Bilateral Breath Sounds Implantable Cardiac Device Does patient have a Pacemaker or an ICD?: No Airway Exam Known Difficult Airway: No Mallampati Class: 2 Mouth Opening: Normal (> 3cm) Thyromental Distance: Greater than 3 cm Neck Range of Motion: Full ROM Neck Circumference: Normal Teeth Condition: Generalized Poor Dentition ASA Classification ASA Score: ASA 4 Emergency Case?: No NPO Status NPO Status: NPO Clears >2 hours, Solids >8 hours (pt had small amount of soda, few sips at [id number]. drank water 12 oz or so until 0600. ) Anesthesia Plan Resuscitation Status: DNR Fully Suspended During Perioperative Period Anesthesia Technique: MAC Anesthesia Airway Planned: Natural Airway Monitors Used: Standard Monitors
[2024-02-17 07:13] VITALS: BMI 20.7
[2024-02-17] MEDS: ceFAZolin 2 GM/50 ML BAG IVPB (07:39)
[2024-02-17] MEDS: Bupivacaine 0.5% Pres-Free W/EPI 30 ML VIAL (08:00)
[2024-02-17] MEDS: Heparin 500 UNITS/5 ML SYRINGE (08:42)
--- NOTE | 2024-02-17 08:42 | DI.RAD_ITS ---
Exam(s) XR FLOURO OR C-ARM <1 HR EXAM: XR FLOURO OR C-ARM <1 HR CLINICAL HISTORY: Insertion of subclavian mediport TECHNIQUE: 2D and realtime digital imaging was performed. CONTRAST MATERIAL: Refer to procedure report. COMPARISON: No exams were available for comparison FINDINGS: Fluoroscopy was provided for Dr. Oc Philip during the performance of a MediPort placement. Please refer to the procedure report for complete details. Ka,r=0.22 mGy IMPRESSION: RADIATION DOSE DELIVERED: 0.0 0.0 0
[2024-02-17 08:55] VITALS: BP 133/88; PULSE 87; RESP 18; TEMP 36.6; O2SAT 98
--- NOTE | 2024-02-17 09:06 | W.ANESPOSTOP ---
Postoperative Evaluation Date, Time and Location Date Performed: 02/17/24 Time Performed: 09:06 Patient Location: Day Surgery Unit Vital Signs Most Recent Imported Vital Signs: Most Recent Vital Signs Temp Pulse Resp BP Pulse Ox 36.6 C 87 18 133/88 98 02/17/24 08:55 02/17/24 08:55 02/17/24 08:55 02/17/24 08:55 02/17/24 08:55 Pain Score Most Recent Pain Score: Most Recent Pain Score Pain Level 9 02/17/24 08:55 Assessment Mental Status: Awake (Alert & Oriented to Patient Baseline) Airway and Respiratory Function: Patent airway with normal (patient baseline) respiratory exam Cardiovascular Function: Hemodynamically Stable Hydration Status: Adequately Hydrated Nausea & Vomiting: No Nausea or Vomiting Pain: Pain is Moderate or Severe Postoperative Pain Management: Other (Pt. state severythign related to procedure is comfortable. This is baseline discomfort. ) Peripheral Nerve Block: Patient did not receive a nerve block
--- NOTE | 2024-02-17 09:20 | DI.RAD_ITS ---
Exam(s) XR PORTABLE CHEST AP POST LINE EXAM: XR PORTABLE CHEST AP POST LINE CLINICAL HISTORY: right sided mediport TECHNIQUE: 2D digital imaging was performed of the chest. One image was obtained. An AP view was ob tained. COMPARISON: XA XR FLOURO OR C-ARM <1 HR from 02/17/2024 FINDINGS: MEDIASTINUM: Normal. HEART: Normal. PULMONARY VASCULATURE: Normal. LUNGS: There is an infiltrate seen in the left lung base. The right lung is clear. PLEURAL SPACE: There is blunting of the left costophrenic angle which may represent scarring or small pleural effusion. No right pleural effusion. No pneumothorax. BONE:Within normal limits for the patient's age. OTHER FINDINGS:There is a right-sided MediPort. The tip of the catheter is in good position in the r egion of the cavoatrial junction. IMPRESSION: Interval placement of a right-sided MediPort. The tip of the catheter is at the cavoatrial junction. No pneumothorax. DATA REPOSITORY: RADIATION DOSE DELIVERED:
[2024-02-17 09:42] VITALS: BP 110/79; PULSE 87; RESP 20; TEMP 36.4; O2SAT 96
--- NOTE | 2024-02-17 10:15 | DI.RAD_ITS ---
Exam(s) RF LINE PLACEMENT OR EXAM: XR FLOURO OR C-ARM <1 HR CLINICAL HISTORY: Insertion of subclavian mediport TECHNIQUE: 2D and realtime digital imaging was performed. CONTRAST MATERIAL: Refer to procedure report. COMPARISON: No exams were available for comparison FINDINGS: Fluoroscopy was provided for Dr. Oc Philip during the performance of a MediPort placement. Please refer to the procedure report for complete details. Ka,r=0.22 mGy IMPRESSION: RADIATION DOSE DELIVERED: 0.0 0.0 0
== END 2024-02-17 10:05 | disposition home or self-care (01) ==
LOC: SUR 06:24
PROVIDERS: Visit Provider Surgery
PROC: (CPT 36561; principal; 2024-02-17 07:30)
DX: C34.92 Malignant neoplasm of unspecified part of left bronchus or lung (principal); C78.7 Secondary malignant neoplasm of liver and intrahepatic bile duct; C79.51 Secondary malignant neoplasm of bone; J44.9 Chronic obstructive pulmonary disease, unspecified
CPT/HCPCS: 36561; 76937; 71045; 76000; 77001; J0690; J1642; J2250; J2405; J2704

== ENCOUNTER 2024-03-07 02:34 | Outpatient (CLI) | payer MEDICAID, SELFPAY ==
[2024-03-07 09:20] LABS: Abs Immature Grans 0.03 10^3/uL (0.0-0.06); Absolute Basophil Count 0.06 10^3/uL (0.0-0.2); Absolute Eosinophil Count 0.06 10^3/uL (0.0-0.7); Absolute Lymphocyte Count 1.44 10^3/uL (1.2-3.4); Absolute Monocyte Count 0.82 10^3/uL (0.1-0.8); Absolute Neutrophil Count 5.57 10^3/uL (1.2-6.7); Basophils % 0.8 %; Eosinophils % 0.8 %; HGB 12.1 g/dL (13.5-17.5); Immature Grans % 0.4 %; MCH 27.9 pg (27.0-33.0); MCHC 31.8 % (32.0-36.0); MCV 88 fL (80-95); MPV 8.9 fL (8.0-11.0); Monocytes % 10.3 %; Neutrophils % 69.7 %; Platelet Count 477 10^3/uL (130-400); RBC 4.33 10^6/uL (4.36-5.78); RDW 18.6 % (11.8-14.1); RDW-SD 60.1 fL; WBC 7.98 10^3/uL (4.4-10.8)
[2024-03-07 09:47] LABS: ALT 20 U/L (16-63); AST 19 U/L (15-37); Albumin 2.7 g/dL (3.4-5.0); Alkaline Phosphatase 660 U/L (46-116); Anion Gap 9.4 mmol/L (3-11); BUN 7 mg/dL (7-18); Bilirubin, Total 0.37 mg/dL (0.2-1.0); CO2 28.6 mmol/L (21.0-32.0); CREATININE 0.9 mg/dL (0.70-1.30); Calcium 9.7 mg/dL (8.5-10.1); Chloride 100 mmol/L (98-107); Estimated GFR 98.38 (mL/min/1.73m2); FREE T4 1.02 ng/dL (0.76-1.46); Glucose 133 mg/dL (74-106); Magnesium 1.8 mg/dL (1.8-2.4); Potassium 3.8 mmol/L (3.5-5.1); Sodium 138 mmol/L (136-145); TSH 0.91 uIU/mL (0.36-3.74); Total Protein 7.9 g/dL (6.4-8.2)
== END 2024-03-07 02:35 | disposition home or self-care (01) ==
LOC: LBO 02:34
PROVIDERS: Visit Provider Internal Medicine Medical Oncology
DX: C34.92 Malignant neoplasm of unspecified part of left bronchus or lung (principal); C79.51 Secondary malignant neoplasm of bone; Z79.899 Other long term (current) drug therapy
CPT/HCPCS: 36415; 80053; 83735; 84439; 84443; 85025

== ENCOUNTER 2024-04-18 09:58 | Outpatient (CLI) | payer MEDICAID, SELFPAY ==
[2024-04-18 08:46] LABS: Abs Immature Grans 0.05 10^3/uL (0.0-0.06); Absolute Basophil Count 0.07 10^3/uL (0.0-0.2); Absolute Eosinophil Count 0.22 10^3/uL (0.0-0.7); Absolute Lymphocyte Count 1.35 10^3/uL (1.2-3.4); Basophils % 0.6 %; Eosinophils % 1.8 %; HCT 37.6 % (40.0-50.0); HGB 12.2 g/dL (13.5-17.5); Immature Grans % 0.4 %; Lymphocytes % 11.3 %; MCH 28.3 pg (27.0-33.0); MCHC 32.4 % (32.0-36.0); MCV 87 fL (80-95); MPV 8.8 fL (8.0-11.0); Monocytes % 6.7 %; Neutrophils % 79.2 %; Platelet Count 473 10^3/uL (130-400); RBC 4.31 10^6/uL (4.36-5.78); RDW 17.2 % (11.8-14.1); RDW-SD 55.7 fL; WBC 11.99 10^3/uL (4.4-10.8)
[2024-04-18 09:22] LABS: ALT 29 U/L (16-63); AST 35 U/L (15-37); Albumin 2.7 g/dL (3.4-5.0); Alkaline Phosphatase 929 U/L (46-116); BUN 10 mg/dL (7-18); Bilirubin, Total 0.59 mg/dL (0.2-1.0); CREATININE 0.8 mg/dL (0.70-1.30); Calcium 9.7 mg/dL (8.5-10.1); Chloride 97 mmol/L (98-107); Estimated GFR 101.95 (mL/min/1.73m2); FREE T4 1.15 ng/dL (0.76-1.46); Glucose 140 mg/dL (74-106); Magnesium 1.6 mg/dL (1.8-2.4); Potassium 3.7 mmol/L (3.5-5.1); Sodium 134 mmol/L (136-145); TSH 1.14 uIU/mL (0.36-3.74); Total Protein 8.3 g/dL (6.4-8.2)
== END 2024-04-18 09:59 | disposition home or self-care (01) ==
LOC: LBO 09:58
PROVIDERS: Visit Provider Internal Medicine Medical Oncology
DX: C34.92 Malignant neoplasm of unspecified part of left bronchus or lung (principal); C79.51 Secondary malignant neoplasm of bone; Z79.899 Other long term (current) drug therapy
CPT/HCPCS: 36415; 80053; 83735; 84439; 84443; 85025

== ENCOUNTER 2024-05-09 09:41 | Outpatient (RCR) | payer MEDICAID, SELFPAY ==
[2024-05-09 09:51] LABS: Absolute Eosinophil Count 0.04 10^3/uL (0.0-0.7); Absolute Monocyte Count 0.93 10^3/uL (0.1-0.8); Basophils % 0.6 %; Eosinophils % 0.3 %; HCT 37.7 % (40.0-50.0); HGB 12.1 g/dL (13.5-17.5); Immature Grans % 0.8 %; Lymphocytes % 13.1 %; MCH 28.3 pg (27.0-33.0); MCHC 32.1 % (32.0-36.0); MCV 88 fL (80-95); Monocytes % 7.4 %; Neutrophils % 77.8 %; Platelet Count 439 10^3/uL (130-400); RBC 4.28 10^6/uL (4.36-5.78); RDW 15.6 % (11.8-14.1); RDW-SD 50.7 fL; WBC 12.56 10^3/uL (4.4-10.8)
[2024-05-09 09:52] LABS: Absolute Basophil Count 0.08 10^3/uL (0.0-0.2); Absolute Lymphocyte Count 1.65 10^3/uL (1.2-3.4); Absolute Neutrophil Count 9.77 10^3/uL (1.2-6.7)
[2024-05-09 10:22] LABS: ALT 16 U/L (16-63); AST 20 U/L (15-37); Albumin 2.4 g/dL (3.4-5.0); Alkaline Phosphatase 830 U/L (46-116); Anion Gap 8.5 mmol/L (3-11); BUN 5 mg/dL (7-18); CO2 31.5 mmol/L (21.0-32.0); Calcium 9.4 mg/dL (8.5-10.1); Chloride 95 mmol/L (98-107); FREE T4 1.24 ng/dL (0.76-1.46); Glucose 139 mg/dL (74-106); Magnesium 1.5 mg/dL (1.8-2.4); Sodium 135 mmol/L (136-145); TSH 0.92 uIU/mL (0.36-3.74); Total Protein 7.4 g/dL (6.4-8.2)
[2024-05-09 10:26] LABS: Potassium 2.8 mmol/L (3.5-5.1)
[2024-05-09] MEDS: Normal Saline Flush 10 ML SYR IVP (10:45)
== END 2024-05-13 23:59 | disposition home or self-care (01) ==
LOC: INF 09:41
PROVIDERS: Visit Provider Internal Medicine Medical Oncology
DX: C34.92 Malignant neoplasm of unspecified part of left bronchus or lung (principal); C79.51 Secondary malignant neoplasm of bone; Z79.899 Other long term (current) drug therapy
CPT/HCPCS: 36591; 80053; 83735; 84439; 84443; 85025